=== PATIENT | female | born 1965 | race Caucasian/White ===

== ENCOUNTER 2016-09-12 07:58 | Emergency (ER) | payer BC ==
[~2016-09-12] VITALS: Ht 152.4 cm; Wt 68.0 kg
[~2016-09-12 07:58] MED LIST: CIPR750T10 PO; FLAG500T PO; LISI-586 PO; LORTA5 PO; PROT40TA PO; ZOFR4TAB3 SL; [UNRECOGNIZED DRUG - OTHER] PO
[2016-09-12 08:01] VITALS: BP 132/75; PULSE 91; RESP 16; TEMP 99; O2SAT 99
[2016-09-12] MEDS ORDERED: PROT40TA PO (08:11)
[2016-09-12] MEDS ORDERED: ESTROGEN REPLACEMENT (08:11)
[2016-09-12] MEDS ORDERED: LISI-586 PO (08:11)
[2016-09-12] MEDS ORDERED: LORA-474 PO (08:11)
[2016-09-12 08:16] VITALS: BP 155/93; PULSE 86; RESP 18; TEMP 98.2; O2SAT 97
[2016-09-12] MEDS ORDERED: ONDANSETRON HCL 4 MG/2 ML VIAL IVP ONE (08:30)
[2016-09-12] MEDS ORDERED: MORPHINE SULFATE 4 MG/ML INJ IV PUSH ONE (08:30)
[2016-09-12] MEDS ORDERED: SODIUM CHLORIDE 0.9% FLUSH 10 ML FLUSH IV FLUSH PRN (08:30)
--- NOTE | 2016-09-12 08:32 | PD ---
HPI Chief Complaint: GI Complaint Time Seen by Provider: 08:16 Travel History International Travel<30 days: No Contact w/Intl Traveler<30days: No Traveled to known affect area: No History of Present Illness HPI The patient was seen and examined in the presence of the nurse. This patient complains of abdominal pain. Duration 2 days. Severity is moderate. She has no vomiting or diarrhea or fever. She does have some nausea. Location of pain is primarily left lower quadrant. Patient has had multiple similar spells of this type in the last couple of years. She's been diagnosed with colitis. She did have a upper and lower endoscopy from a GI physician in [place] but did not come away with any specific recommendations after that testing. PFSH Past Medical History Cardiovascular Problems: Yes (HIGH BP) Diminished Hearing: No Diverticulitis: Yes Gastrointestinal Disorders: Yes (ESOPHAGEAL HERNIA) GERD: Yes Hypertension: Yes Immunizations Current: Yes Influenza Vaccination: No ?: Not Menopausal: Yes Past Surgical History Section: Yes Gynecologic Surgery: Yes Hysterectomy: Yes (2011) Social History Alcohol Use: Yes ([facility]) Tobacco Use: No Substance Use: No Allergies-Medications (Allergen,Severity, Reaction): Coded Allergies: No Known Allergies (Unverified , 09/12/16) Reported Meds & Prescriptions Reported Meds & Active Scripts Active Zofran (Ondansetron HCl) 4 Mg Tab 4 Mg PO Q6HR PRN Tramadol (Tramadol HCl) 50 Mg Tab 50 Mg PO Q6H PRN Reported [estrogen replacement] Ativan (Lorazepam) 1 Mg Tab 1 Mg PO HS PRN Protonix (Pantoprazole Sodium) 40 Mg Tab 40 Mg PO DAILY Zestoretic (Lisinopril-Hctz) 20-12.5 Mg Tab 1 Tab PO DAILY [Jentil] 1 Tab PO DAILY Review of Systems General / Constitutional: No: Fever Eyes: No: Visual changes HENT: No: Headaches Cardiovascular: No: Chest Pain or Discomfort Respiratory: No: Shortness of Breath Gastrointestinal: Positive: Nausea, Abdominal Pain Genitourinary: No: Dysuria Musculoskeletal: No: Pain Skin: No Rash Neurologic: No: Weakness Psychiatric: No: Depression Endocrine: No: Polydipsia Hematologic/Lymphatic: No: Easy Bruising Physical Exam Narrative GENERAL: Well-nourished, well-developed patient with some abdominal discomfort. SKIN: Focused skin assessment reveals no rash and nodules. Skin is Warm and dry. HEAD: Atraumatic. Normocephalic. EYES: Pupils equal and round. No scleral icterus. No injection or drainage. ENT: No nasal bleeding or discharge. Mucous membranes pink and moist. NECK: Trachea midline. No JVD. CARDIOVASCULAR: Regular rate and rhythm. No murmur appreciated. RESPIRATORY: No accessory muscle use. Clear to auscultation. Breath sounds equal bilaterally. GASTROINTESTINAL: Abdomen soft, left lower quadrant is tender but no rebound or guarding, nondistended. Hepatic and splenic margins not palpable. None of the other quadrants are tender MUSCULOSKELETAL: No obvious deformities. No clubbing. No cyanosis. No edema. NEUROLOGICAL: Awake and alert. No obvious cranial nerve deficits. Motor grossly within normal limits. Normal speech. PSYCHIATRIC: Appropriate mood and affect; insight and judgment normal. Data Data Last Documented VS Vital Signs Date Time Temp Pulse Resp B/P Pulse Ox O2 Delivery O2 Flow Rate FiO2 09/12/16 10:50 83 16 117/72 100 Room Air 09/12/16 08:16 98.2 Orders Complete Blood Count With Diff (09/12/16 08:23) Comprehensive Metabolic Panel (09/12/16 08:23) Lipase (09/12/16 08:23) Iv Access Insert/Monitor (09/12/16 08:23) NPO (09/12/16 08:23) Morphine Inj (Morphine Inj) (09/12/16 08:30) Ondansetron Inj (Zofran Inj) (09/12/16 08:30) Sodium Chloride 0.9% Flush (Ns Flush) (09/12/16 08:30) Labs Laboratory Tests Test 09/12/16 08:20 White Blood Count 7.9 TH/MM3 Red Blood Count 4.53 MIL/MM3 Hemoglobin 13.6 GM/DL Hematocrit 39.0 % Mean Corpuscular Volume 86.0 FL Mean Corpuscular Hemoglobin 29.9 PG Mean Corpuscular Hemoglobin 34.8 % Concent Red Cell Distribution Width 13.3 % Platelet Count 172 TH/MM3 Mean Platelet Volume 7.7 FL Neutrophils (%) (Auto) 81.5 % Lymphocytes (%) (Auto) 12.6 % Monocytes (%) (Auto) 3.9 % Eosinophils (%) (Auto) 1.5 % Basophils (%) (Auto) 0.5 % Neutrophils # (Auto) 6.4 TH/MM3 Lymphocytes # (Auto) 1.0 TH/MM3 Monocytes # (Auto) 0.3 TH/MM3 Eosinophils # (Auto) 0.1 TH/MM3 Basophils # (Auto) 0.0 TH/MM3 CBC Comment DIFF FINAL Differential Comment Sodium Level 138 MEQ/L Potassium Level 3.5 MEQ/L Chloride Level 103 MEQ/L Carbon Dioxide Level 26.7 MEQ/L Anion Gap 8 MEQ/L Blood Urea Nitrogen 12 MG/DL Creatinine 0.56 MG/DL Estimat Glomerular Filtration 114 ML/MIN Rate Random Glucose 105 MG/DL Calcium Level 8.2 MG/DL Total Bilirubin 0.6 MG/DL Aspartate Amino Transf 12 U/L (AST/SGOT) Alanine Aminotransferase 23 U/L (ALT/SGPT) Alkaline Phosphatase 60 U/L Total Protein 7.0 GM/DL Albumin 3.6 GM/DL Lipase 163 U/L [facility] Medical Decision Making Medical Screen Exam Complete: Yes Emergency Medical Condition: Yes Medical Record Reviewed: Yes Differential Diagnosis Colitis, diverticulitis, ileus Narrative Course I have reviewed the patient's electronic medical record. Patient was seen twice for this constellation of symptoms last year. CT scan revealed a nonspecific enteritis in the jejunal region IV placed I gave her dose of morphine and Zofran for symptom relief CBC is normal Metabolic profile is normal LFTs are normal Lipase is normal On recheck patient feels well. She has soft benign abdomen This seems to be a flare of a problem it's turning out to be chronic. 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 I sort of doubt it. does not want her to get more antibiotics he doesn't think that helped. The patient is not really wanting to take them either. I wrote medicine for pain and nausea as needed. They're going to follow up with a GI physician here in [facility] under their [facility] plan rather than try to keep going back and forth to [place]. Diagnosis Primary Impression: Abdominal pain Qualified Code: R10.32 - Left lower quadrant pain Additional Instructions: The patient was advised to follow up with their physician and return if they worsen. The patient was warned about potential sedation for the medications they will receive on prescription. Med/Other Pt SpecificInfo: Prescription(s) given Scripts Ondansetron (Zofran)4 Mg Tab4 Mg PO Q6HR PRN (NAUSEA OR VOMITING) #14 TAB Ref 0 Prov:Riccardo Khan MD 09/12/16 Tramadol 50 Mg Tab50 Mg PO Q6H PRN (PAIN) #25 TAB Ref 0 Prov:Riccardo Khan MD 09/12/16 Disposition: 01 DISCHARGE HOME Condition: Stable Riccardo Khan MD September 12, 2016 08:32
[2016-09-12 09:28] LABS: AUTOMATED NEUTROPHIL # 6.4 TH/MM3 (1.8-7.7); BASOPHIL % 0.5 % (0.0-2.0); EOSINOPHIL # 0.1 TH/MM3 (0-0.4); EOSINOPHIL % 1.5 % (0.0-4.0); HEMO FLAGS DIFF FINAL; LYMPH % 12.6 % (9.0-44.0); MEAN CORPUSCULAR HEMOGLOBIN 29.9 PG (27.0-34.0); MEAN CORPUSCULAR HGB CONC 34.8 % (32.0-36.0); MONO % 3.9 % (0.0-8.0); NEUT % 81.5 % (16.0-70.0); PLATELET COUNT 172 TH/MM3 (150-450); RED BLOOD COUNT 4.53 MIL/MM3 (4.00-5.30); RED CELL DISTRIBUTION WIDTH 13.3 % (11.6-17.2); WHITE BLOOD COUNT 7.9 TH/MM3 (4.0-11.0)
[2016-09-12 09:31] LABS: ANION GAP 8 MEQ/L (5-15); AST (GOT) 12 U/L (15-37); BICARBONATE 26.7 MEQ/L (21.0-32.0); BLOOD UREA NITROGEN 12 MG/DL (7-18); CHLORIDE 103 MEQ/L (98-107); GLOMERULAR FILTRATION RATE 114 ML/MIN (>89); POTASSIUM 3.5 MEQ/L (3.5-5.1); SODIUM (NA) 138 MEQ/L (136-145)
[2016-09-12 09:34] LABS: ALKALINE PHOSPHATASE 60 U/L (45-117); ALT (GPT) 23 U/L (10-53); TOTAL BILIRUBIN ADULT 0.6 MG/DL (0.2-1.0)
[2016-09-12 10:50] VITALS: BP 117/72; PULSE 83; RESP 16; O2SAT 100
[2016-09-12] MEDS ORDERED: ZOFR4TAB PO (11:10)
[2016-09-12] MEDS ORDERED: TRAM50TA PO (11:10)
== END 2016-09-12 11:26 | disposition home or self-care (01) ==
LOC: NEPC 07:58
DX: R10.32 Left lower quadrant pain (principal); R11.2 Nausea with vomiting, unspecified; I10 Essential (primary) hypertension
CPT/HCPCS: 80053; 83690; 85025; 96374; 96375; 99284; J2270; J2405

== ENCOUNTER 2017-03-22 11:14 | Emergency (ER) | payer BC ==
[~2017-03-22] VITALS: Ht 152.4 cm; Wt 76.0 kg
[~2017-03-22 11:14] MED LIST changes: -CIPR750T10 PO; +ESTROGEN REPLACEMENT; -FLAG500T PO; +LORA-474 PO; -LORTA5 PO; +TRAM50TA PO; +ZOFR4TAB PO; -ZOFR4TAB3 SL
[2017-03-22 11:22] VITALS: BP 128/75; PULSE 73; RESP 16; TEMP 97.8; O2SAT 99
[2017-03-22] MEDS ORDERED: SODIUM CHLOR 0.9% 1000 ML INJ 1,000 ML IV ONE (11:26)
[2017-03-22 11:29] VITALS: RESP 16; O2SAT 99
[2017-03-22 11:30] VITALS: BP_SYST 116; BP_SYST 120; BP_SYST 128; BP_DIAS 76; BP_DIAS 80; BP_DIAS 81; RESP 16; RESP 17; RESP 18
[2017-03-22] MEDS ORDERED: ONDANSETRON HCL 4 MG/2 ML VIAL IVP ONE (11:30)
[2017-03-22] MEDS ORDERED: SODIUM CHLORIDE 0.9% FLUSH 10 ML FLUSH IVF PRN (11:30)
--- NOTE | 2017-03-22 11:53 | RADRPT ---
EXAM DATE/TIME: 03/22/2017 11:40 [facility] COMPARISON: CHEST SINGLE AP, April 30, 2015, 4:46. INDICATIONS : Palpitations, headache, recently treated for bronchitits MEDICAL HISTORY : Hypertension. SURGICAL HISTORY : None. ENCOUNTER: Initial ACUITY: 1 day PAIN SCORE: 0/10 LOCATION: Bilateral chest FINDINGS: A single view of the chest demonstrates the lungs to be symmetrically aerated without evidence of mas s, infiltrate or effusion. The cardiomediastinal contours are unremarkable. Osseous structures are intact. CONCLUSION: Normal examination. Forest Meyer Jr., MD on March 22, 2017 at 11:51 Board Certified Radiologist. This report was verified electronically.
--- NOTE | 2017-03-22 11:58 | PD ---
HPI Chief Complaint: headache Time Seen by Provider: 11:26 Travel History International Travel<30 days: No Contact w/Intl Traveler<30days: No Traveled to known affect area: No History of Present Illness HPI onset of nam, dizziness, palpitations, hot flushing sensation while at work... no heavy lifting or strenous movement....denies any pain preceding all these symptoms , they all occurred concomitantly. denies any v/d/fever at this point. patient was sent here from work because of her symptoms....currently patient feels better while resting supine PFSH Past Medical History Cardiovascular Problems: Yes (HIGH BP) Diminished Hearing: No Diverticulitis: Yes Gastrointestinal Disorders: Yes (ESOPHAGEAL HERNIA) GERD: Yes Hypertension: Yes Immunizations Current: Yes Menopausal: Yes Past Surgical History Section: Yes Gynecologic Surgery: Yes Hysterectomy: Yes (2011) Social History Alcohol Use: Yes ([facility]) Tobacco Use: No Substance Use: No Allergies-Medications (Allergen,Severity, Reaction): Coded Allergies: No Known Allergies (Verified Adverse Reaction, Unknown, 03/22/17) Reported Meds & Prescriptions Reported Meds & Active Scripts Active Reported Ativan (Lorazepam) 1 Mg Tab 1 Mg PO HS PRN Zestoretic (Lisinopril-Hctz) 20-12.5 Mg Tab 1 Tab PO DAILY Review of Systems Except as stated in HPI: all other systems reviewed are Neg Physical Exam Narrative GENERAL: SKIN: Warm and dry. HEAD: Atraumatic. Normocephalic. EYES: Pupils equal and round. No scleral icterus. No injection or drainage. ENT: No nasal bleeding or discharge. Mucous membranes pink and moist. NECK: Trachea midline. No JVD. CARDIOVASCULAR: Regular rate and rhythm. RESPIRATORY: No accessory muscle use. Clear to auscultation. Breath sounds equal bilaterally. GASTROINTESTINAL: Abdomen soft, non-tender, nondistended. MUSCULOSKELETAL: Extremities without clubbing, cyanosis, or edema. No obvious deformities. NEUROLOGICAL: Awake and alert. No obvious cranial nerve deficits. Motor grossly within normal limits. Five out of 5 muscle strength in the arms and legs. Normal speech. PSYCHIATRIC: Appropriate mood and affect; insight and judgment normal. Data Data Last Documented VS Vital Signs Date Time Temp Pulse Resp B/P (MAP) Pulse Ox O2 Delivery O2 Flow Rate FiO2 03/22/17 13:03 76 16 130/72 (91) 100 Room Air 03/22/17 11:22 97.8 Orders Orders Electrocardiogram (03/22/17 11:26) Complete Blood Count With Diff (03/22/17 11:26) Comprehensive Metabolic Panel (03/22/17 11:26) B-Type Natriuretic Peptide (03/22/17 11:26) Troponin I (03/22/17 11:26) Urinalysis - C+S If Indicated (03/22/17 11:26) Chest, Single Ap (03/22/17 11:26) Ct Brain W/O Iv Contrast(Rout) (03/22/17 11:26) Ecg Monitoring (03/22/17 11:26) Iv Access Insert/Monitor (03/22/17 11:26) Oximetry (03/22/17 11:26) Ondansetron Inj (Zofran Inj) (03/22/17 11:30) Sodium Chloride 0.9% Flush (Ns Flush) (03/22/17 11:30) Sodium Chlor 0.9% 1000 Ml Inj (Ns 1000 M (03/22/17 11:26) Orthostatic Vital Signs (03/22/17 11:26) Urine Culture (03/22/17 12:15) Labs Laboratory Tests Test 03/22/17 11:23 03/22/17 11:33 03/22/17 12:15 Blood Urea Nitrogen 11 MG/DL Creatinine 0.57 MG/DL Random Glucose 108 MG/DL Total Protein 7.3 GM/DL Albumin 3.9 GM/DL Calcium Level 9.0 MG/DL Alkaline Phosphatase 54 U/L Aspartate Amino Transf (AST/SGOT) 11 U/L Alanine Aminotransferase (ALT/SGPT) 25 U/L Total Bilirubin 0.4 MG/DL Sodium Level 137 MEQ/L Potassium Level 3.2 MEQ/L Chloride Level 100 MEQ/L Carbon Dioxide Level 32.2 MEQ/L Anion Gap 5 MEQ/L Estimat Glomerular Filtration Rate 111 ML/MIN Troponin I LESS THAN 0.02 NG/ML White Blood Count 4.7 TH/MM3 Red Blood Count 4.35 MIL/MM3 Hemoglobin 13.4 GM/DL Hematocrit 37.7 % Mean Corpuscular Volume 86.7 FL Mean Corpuscular Hemoglobin 30.8 PG Mean Corpuscular Hemoglobin Concent 35.5 % Red Cell Distribution Width 13.2 % Platelet Count 175 TH/MM3 Mean Platelet Volume 7.5 FL Neutrophils (%) (Auto) 51.0 % Lymphocytes (%) (Auto) 39.6 % Monocytes (%) (Auto) 5.3 % Eosinophils (%) (Auto) 3.5 % Basophils (%) (Auto) 0.6 % Neutrophils # (Auto) 2.4 TH/MM3 Lymphocytes # (Auto) 1.9 TH/MM3 Monocytes # (Auto) 0.2 TH/MM3 Eosinophils # (Auto) 0.2 TH/MM3 Basophils # (Auto) 0.0 TH/MM3 CBC Comment DIFF FINAL Differential Comment B-Type Natriuretic Peptide 3 PG/ML Urine Color YELLOW Urine Turbidity HAZY Urine pH 7.5 Urine Specific Jermyn 1.011 Urine Protein NEG mg/dL Urine Glucose (UA) NEG mg/dL Urine Ketones TRACE mg/dL Urine Occult Blood NEG Urine Nitrite NEG Urine Bilirubin NEG Urine Urobilinogen LESS THAN 2.0 MG/DL Urine Leukocyte Esterase NEG Urine RBC 1 /hpf Urine WBC 2 /hpf Urine Squamous Epithelial Cells 10 /hpf Urine Amorphous Sediment RARE Urine Bacteria MANY /hpf Microscopic Urinalysis Comment CULTURE INDICATED MDM Medical Decision Making Medical Screen Exam Complete: Yes Emergency Medical Condition: Yes Medical Record Reviewed: Yes Differential Diagnosis anemia v dehydration v pna v ich v uti Narrative Course no e/o anemia, dehydration noted....chxr neg for ptx/pna/pleural effusion, ct head neg for ich/sinusitis...but ua c/w uti Diagnosis Primary Impression: Vasovagal near-syncope Additional Impression: UTI (urinary tract infection) Qualified Codes: N30.00 - Acute cystitis without hematuria Patient Instructions: General Instructions, Near Syncope (ED), Urinary Tract Infection in Women (ED) Scripts Ondansetron Odt (Zofran Odt) 4 Mg Tab 4 MG SL Q6HR Y for Nausea/Vomiting, #10 TAB 0 Refills Prov: Vinny Rasmussen MD 03/22/17 Nitrofurantoin Monohydrate Macrocrystals (Macrobid) 100 Mg Capsule 100 MG PO BID for Infection for 7 Days, #14 CAP 0 Refills Prov: Vinny Rasmussen MD 03/22/17 Disposition: 01 DISCHARGE HOME Condition: Stable Vinny Rasmussen MD Mar 22, 2017 11:57
[2017-03-22 12:15] LABS: AUTOMATED NEUTROPHIL # 2.4 TH/MM3 (1.8-7.7); BASOPHIL % 0.6 % (0.0-2.0); EOSINOPHIL # 0.2 TH/MM3 (0-0.4); EOSINOPHIL % 3.5 % (0.0-4.0); HEMATOCRIT 37.7 % (35.0-46.0); HEMO FLAGS DIFF FINAL; LYMPH % 39.6 % (9.0-44.0); LYMPHOCYTE # 1.9 TH/MM3 (1.0-4.8); MEAN CELL VOLUME 86.7 FL (80.0-100.0); MEAN CORPUSCULAR HEMOGLOBIN 30.8 PG (27.0-34.0); MEAN CORPUSCULAR HGB CONC 35.5 % (32.0-36.0); MONO % 5.3 % (0.0-8.0); PLATELET COUNT 175 TH/MM3 (150-450); RED BLOOD COUNT 4.35 MIL/MM3 (4.00-5.30); RED CELL DISTRIBUTION WIDTH 13.2 % (11.6-17.2); WHITE BLOOD COUNT 4.7 TH/MM3 (4.0-11.0)
[2017-03-22 12:29] LABS: ALT (GPT) 25 U/L (10-53); ANION GAP 5 MEQ/L (5-15); AST (GOT) 11 U/L (15-37); BICARBONATE 32.2 MEQ/L (21.0-32.0); BLOOD UREA NITROGEN 11 MG/DL (7-18); CHLORIDE 100 MEQ/L (98-107); GLOMERULAR FILTRATION RATE 111 ML/MIN (>89); POTASSIUM 3.2 MEQ/L (3.5-5.1); SODIUM (NA) 137 MEQ/L (136-145)
[2017-03-22 12:33] LABS: ALKALINE PHOSPHATASE 54 U/L (45-117); TOTAL BILIRUBIN ADULT 0.4 MG/DL (0.2-1.0)
[2017-03-22 13:03] VITALS: BP 130/72; PULSE 76; RESP 16; O2SAT 100
--- NOTE | 2017-03-22 13:30 | RADRPT ---
EXAM DATE/TIME: 03/22/2017 13:03 [facility] COMPARISON: CT ABDOMEN & PELVIS W/O CONTRAST, April 30, 2015, 6:26. INDICATIONS : Headaches with vomiting for one day. RADIATION DOSE: 56.35 CTDIvol (mGy) MEDICAL HISTORY : Hypertension. SURGICAL HISTORY : Hysterectomy. ENCOUNTER: Initial ACUITY: 1 day PAIN SCALE: 5/10 LOCATION: Bilateral cranial TECHNIQUE: Multiple contiguous axial images were obtained of the head. Using automated exposure control and adj ustment of the mA and/or kV according to patient size, radiation dose was kept as low as reasonably a chievable to obtain optimal diagnostic quality images. DICOM format image data is available electro nically for review and comparison. FINDINGS: CEREBRUM: The ventricles are normal for age. No evidence of midline shift, mass lesion, hemorrhage or acute in farction. No extra-axial fluid collections are seen. POSTERIOR FOSSA: The cerebellum and brainstem are intact. The 4th ventricle is midline. The cerebellopontine angle i s unremarkable. EXTRACRANIAL: The visualized portion of the orbits is intact. SKULL: The calvaria is intact. No evidence of skull fracture. CONCLUSION: 1. No acute intracranial abnormality. Byron Rodriguez MD on March 22, 2017 at 13:26 Board Certified Radiologist. This report was verified electronically.
[2017-03-22 13:31] LABS: BACTERIA, URINE MANY /hpf; BLOOD, URINE NEG (NEG); COMMENT (UR) CULTURE INDICATED; CULTURE IF INDICATED CULTURE INDICATED; GLUCOSE,URINE NEG (NEG); KETONE, URINE TRACE mg/dL (NEG); NITRITE,URINE NEG (NEG); PH, URINE 7.5 (5.0-8.5); SQUAMOUS EPITHELIAL CELL URINE 10 /hpf (0-5); URINE COLOR YELLOW (YELLW/STRAW)
[2017-03-22] MEDS ORDERED: ZOFR4TAB3 SL (13:55)
[2017-03-22] MEDS ORDERED: MACR100C2 PO (13:55)
[2017-03-22 15:00] VITALS: BP 120/83; TEMP 97.8
--- NOTE | 2017-03-23 17:12 | EKG ---
Date Performed: 03/22/2017 Time Performed: 11:27:10 PTAGE: 51 years EKG: Sinus rhythm Since previous tracing, no significant change noted NORMAL ECG PREVIOUS TRACING : 04/30/2015 04.48 DOCTOR: Destiny Guadarrama Interpretating Date/Time 03/23/2017 17:10:27
== END 2017-03-22 15:00 | disposition home or self-care (01) ==
LOC: NEPD 11:14
DX: R55 Syncope and collapse (principal); N30.00 Acute cystitis without hematuria; R00.2 Palpitations; I10 Essential (primary) hypertension
CPT/HCPCS: 70450; 71010; 80053; 81001; 83880; 84484; 85025; 87086; 93005; 96361; 96374; 99285; J2405; J7030